=== PATIENT | male | born 1930 | race Caucasian/White ===

== ENCOUNTER 2017-07-07 18:06 | Inpatient (IN) | payer MEDICARE ==
[~2017-07-07] VITALS: Ht 177.8 cm; Wt 136.0 kg
[2017-07-07 18:18] LABS: GLUCOSE,POINT OF CARE 401 MG/DL (70-110)
[2017-07-07] MEDS ORDERED: MEMA5 PO (18:18)
[2017-07-07] MEDS ORDERED: GLIP5 PO (18:18)
[2017-07-07] MEDS ORDERED: OSEL75 PO (18:18)
[2017-07-07] MEDS ORDERED: GABA-529 PO (18:18)
[2017-07-07] MEDS ORDERED: OMEG-135 PO (18:18)
[2017-07-07] MEDS ORDERED: DOCU-275 PO (18:18)
[2017-07-07] MEDS ORDERED: TIOT185 IH (18:18)
[2017-07-07] MEDS ORDERED: OMEP20 PO (18:18)
[2017-07-07] MEDS ORDERED: BUME1TAB17 PO (18:18)
[2017-07-07] MEDS ORDERED: ASPI81 PO (18:18)
[2017-07-07] MEDS ORDERED: ADV250 IH (18:18)
[2017-07-07] MEDS ORDERED: LISI-661 PO (18:18)
[2017-07-07] MEDS ORDERED: QUET25TA PO (18:18)
[2017-07-07] MEDS ORDERED: CARV6 PO (18:18)
[2017-07-07] MEDS ORDERED: VITAD1000 PO (18:18)
[2017-07-07 19:14] LABS: BASOPHILS % (AUTO) 0.6 % (0.0-2.0); EOSINOPHILS % (AUTO) 1.3 % (1.0-6.0); HEMATOCRIT 35.9 % (41-53); HEMOGLOBIN 11.9 g/dL (13.5-17.5); LYMPHOCYTES # (AUTO) 1.5 K/uL (1.0-4.8); LYMPHOCYTES % (AUTO) 18.1 % (22.0-44.0); MEAN CORPUSCULAR HEMOGLOBIN 31.9 pg (26.0-34.0); MEAN CORPUSCULAR HGB CONC 33.1 G/dL (31.0-37.0); MEAN CORPUSCULAR VOLUME 96 fL (80-100); MONOCYTES # (AUTO) 0.8 K/uL (0.1-1.0); MONOCYTES % (AUTO) 10.1 % (2.0-9.0); NEUTROPHILS # (AUTO) 5.8 K/uL (1.8-7.7); NEUTROPHILS % (AUTO) 69.9 % (40.0-70.0); RED BLOOD CELL COUNT(AUTO) 3.72 MIL/uL (4.50-5.90); RED CELL DISTRIBUTION WIDTH 17.7 % (11.5-14.5)
[2017-07-07 19:23] LABS: CALCIUM, TOTAL 8.9 mg/dL (8.8-10.5); CREATININE 3.16 mg/dL (0.60-1.30); POTASSIUM 4.8 mmol/L (3.5-5.1)
[2017-07-07 19:30] LABS: ALBUMIN 2.4 g/dL (3.4-5.0); BILIRUBIN,TOTAL 0.3 mg/dL (0.1-1.0); TOTAL PROTEIN, SERUM 7.6 g/dL (6.4-8.2)
[2017-07-07 19:53] LABS: TROPONIN I < 0.02 ng/mL (0.00-0.05)
[2017-07-07 20:03] LABS: GLUCOSE,POINT OF CARE 361 MG/DL (70-110)
[2017-07-07 20:32] LABS: AMMONIA < 11 umol/L (11-32)
[2017-07-07 20:38] LABS: PLATELET COUNT (AUTO) 299 K/uL (150-450)
[2017-07-07] MEDS ORDERED: AZITHROMYCIN 500 MG/NS 250 ML IV ONE (21:00)
[2017-07-07] MEDS ORDERED: CefTRIAXone 1 GM/DEXTROSE 50 ML IV ONE (21:00)
[2017-07-07] MEDS ORDERED: SODIUM CHLORIDE 0.9% 1,000 ML IV ONE (21:00)
[2017-07-07] MEDS ORDERED: ACETAMINOPHEN 325 MG TABLET PO PRN (21:00)
[2017-07-07] MEDS ORDERED: 0.9% SODIUM CHLORIDE 10 ML SYRINGE IVP PRN (21:00)
[2017-07-08 00:53] LABS: INFLUENZA TYPE A NEGATIVE FOR TYPE A (NEGATIVE); INFLUENZA TYPE B NEGATIVE FOR TYPE B (NEGATIVE)
[2017-07-08 01:08] LABS: GLUCOSE,POINT OF CARE 242 MG/DL (70-110)
[2017-07-08] MEDS ORDERED: IPRATROPIUM BROMIDE 0.5 MG/2.5 ML NEB SOLUTION NEB ONE ×2 (03:45→06:45)
[2017-07-08] MEDS ORDERED: ALBUTEROL SULFATE 5 MG/ML 20 ML NEB SOLN [BULK] NEB ONE ×2 (03:45→06:45)
[2017-07-08] MEDS ORDERED: DEXAMETHASONE SOD PHOS 10 MG/ML VIAL IVP ONE (06:45)
[2017-07-08] MEDS ORDERED: 0.9% SODIUM CHLORIDE 15 ML NEB SOLUTION NEB ONE (07:07)
[2017-07-08 08:35] VITALS: BP 130/60
[2017-07-08] MEDS ORDERED: ASPIRIN 81 MG CHEWABLE TABLET PO SCH (09:00)
[2017-07-08] MEDS ORDERED: LISINOPRIL 10 MG TABLET PO SCH (09:00)
[2017-07-08] MEDS ORDERED: GABAPENTIN 100 MG CAPSULE PO SCH (09:00)
[2017-07-08] MEDS ORDERED: DOCUSATE SODIUM 100 MG CAPSULE PO SCH (09:00)
[2017-07-08] MEDS ORDERED: TIOTROPIUM BROMIDE 18 MCG/INH HANDIHALER [5] IH SCH (09:00)
[2017-07-08] MEDS: CARVEDILOL 6.25 MG TABLET PO SCH ×2 (09:32)
[2017-07-08] MEDS: OMEGA-3/DHA/EPA/FISH OIL 1,000 MG CAPSULE PO SCH ×2 (09:32)
[2017-07-08] MEDS: OSELTAMIVIR PHOSPHATE 75 MG CAPSULE PO SCH ×2 (09:32)
[2017-07-08] MEDS: MEMANTINE HCL 5 MG TABLET PO SCH ×2 (09:32)
[2017-07-08] MEDS ORDERED: SODIUM CHLORIDE 0.9% 1,000 ML IV ONE (10:00)
[2017-07-08 11:04] VITALS: BP 119/65
[2017-07-08] MEDS ORDERED: INSULIN DETEMIR 100 UNITS/ML SQ SCH ×2 (12:30→21:00)
[2017-07-08] MEDS ORDERED: DEXTROSE 50%-WATER 25 GM/50 ML SYRINGE IVP PRN (12:30)
[2017-07-08] MEDS: INSULIN ASPART 100 UNITS/ML SQ PRN ×2 (12:37→17:44)
[2017-07-08] MEDS ORDERED: INSULIN DETEMIR 100 UNITS/ML SQ ONE (12:45)
[2017-07-08 13:48] LABS: GLUCOMETER DEV NAME(LOC) 6N 2D; GLUCOSE,POINT OF CARE 464 MG/DL (70-110)
[2017-07-08 13:48] LABS: GLUCOMETER DEV NAME(LOC) 6N 2D; GLUCOSE,POINT OF CARE 440 MG/DL (70-110)
[2017-07-08 15:28] VITALS: BP 133/75
[2017-07-08] MEDS ORDERED: GlipiZIDE 5 MG TABLET PO SCH (17:30)
[2017-07-08] MEDS ORDERED: INSULIN ASPART 100 UNITS/ML SQ ONE (18:00)
[2017-07-08 18:37] LABS: GLUCOMETER DEV NAME(LOC) 6N 2D; GLUCOSE,POINT OF CARE 425 MG/DL (70-110)
[2017-07-08] MEDS ORDERED: QUEtiapine FUMARATE 25 MG TABLET PO SCH ×2 (21:00)
[2017-07-08] MEDS ORDERED: CefTRIAXone 1 GM/DEXTROSE 50 ML IV SCH (21:00)
[2017-07-08] MEDS ORDERED: HEPARIN SODIUM,PORCINE 5,000 UNITS/ML VIAL SQ SCH (21:00)
[2017-07-08] MEDS ORDERED: AZITHROMYCIN 250 MG TABLET PO SCH (22:00)
== END 2017-07-08 19:45 | disposition short-term general hospital (02) | DRG 682 ==
LOC: EMS 18:12 → 6N 07-08 04:30
PROVIDERS: ADMIT Internal Medicine; ATTEND Internal Medicine
DX: N17.9 Acute kidney failure, unspecified (principal); J11.00 Influenza due to unidentified influenza virus with unspecified type of pneumonia; E43 Unspecified severe protein-calorie malnutrition; G92 Toxic encephalopathy; J18.9 Pneumonia, unspecified organism; E11.21 Type 2 diabetes mellitus with diabetic nephropathy; J44.0 Chronic obstructive pulmonary disease with (acute) lower respiratory infection; Z68.41 Body mass index [BMI] 40.0-44.9, adult; G30.9 Alzheimer's disease, unspecified; F02.80 Dementia in other diseases classified elsewhere, unspecified severity, without behavioral disturbance, psychotic disturbance, mood disturbance, and anxiety; E78.5 Hyperlipidemia, unspecified; E78.00 Pure hypercholesterolemia, unspecified; I25.10 Atherosclerotic heart disease of native coronary artery without angina pectoris; Z51.5 Encounter for palliative care; E11.22 Type 2 diabetes mellitus with diabetic chronic kidney disease; N18.9 Chronic kidney disease, unspecified; I12.9 Hypertensive chronic kidney disease with stage 1 through stage 4 chronic kidney disease, or unspecified chronic kidney disease; Z66 Do not resuscitate; E66.01 Morbid (severe) obesity due to excess calories; Z82.49 Family history of ischemic heart disease and other diseases of the circulatory system; Z83.3 Family history of diabetes mellitus; Z79.899 Other long term (current) drug therapy; Z79.82 Long term (current) use of aspirin
CPT/HCPCS: 82962; 83605; 87040; 87804; 93005; 94644; 96365; 96367; 96375; 99285; J0456; J0696; J1100; J1815